=== PATIENT | female | born 1995 | race Hispanic/Latino ===

== ENCOUNTER 2021-08-15 21:02 | Emergency (ER) | payer OTHER, SELFPAY ==
[2021-08-15 21:15] VITALS: BP 129/74; PULSE 88; RESP 16; TEMP 36.4; O2SAT 100
--- NOTE | 2021-08-15 22:35 | ED.SKABFB ---
HPI - Skin/Abscess/Foreign Bdy General Chief complaint: Skin/Abscess/Foreign Body Stated complaint: foreign body stuck in lip piercing Time Seen by Provider: 08/15/21 22:06 Source: patient and family Mode of arrival: ambulatory History of Present Illness HPI narrative: 25-year-old otherwise healthy here with retained foreign body in her upper lip for last several weeks. Patient states that she was trying to get it out but was unsuccessful. She is worried it could get infected. Onset (ago): week(s) (Several week) Location: face (Upper lip) Context: none Associated symptoms: denies other symptoms Related Data Allergies Allergy/AdvReac Type Severity Reaction Status Date / Time No Known Allergies Allergy Verified 08/15/21 21:20 Review of Systems Review of Systems: All systems reviewed & are unremarkable except as noted in HPI and below Constitutional: Constitutional: Reports no additional constitutional complaints Eyes: Eyes: Reports no additional eye complaints ENT: Reports as per HPI Cardiovascular: Cardiovascular: Reports no additional cardiovascular complaints Respiratory: Respiratory: Reports no additional respiratory complaints Gastrointestinal: Gastrointestinal: Reports no additional gastrointestinal complaints Genitourinary: Genitourinary: Reports no additional female genitourinary complaints Musculoskeletal: Musculoskeletal: Reports no additional musculoskeletal complaints Exam Narrative: GENERAL: Well-appearing, well-nourished, and in no acute distress. HEAD: Normocephalic, atraumatic. EYES: PERRLA and EOMI. ENT: Nares clear, no rhinorrhea or epistaxis. Mucous membranes moist. FB is palpable in the upper lip NECK: Supple. CHEST: Clear to auscultation. No respiratory distress. HEART: Regular rate and rhythm. No murmur heard. Normal peripheral pulses. EXTREMITIES: Normal range of motion. No edema. SKIN: Warm, dry, no rash. NEURO: No focal deficits. Alert and oriented x3. PSYCH: Normal mood and affect. Course Vital Signs Vital signs: Vital Signs Temperature 36.4 C 08/15/21 21:15 Pulse Rate 88 08/15/21 21:15 Respiratory Rate 16 08/15/21 21:15 Blood Pressure 129/74 08/15/21 21:15 Pulse Oximetry 100 08/15/21 21:15 Temperature 36.4 C 08/15/21 21:15 Pulse Rate 88 08/15/21 21:15 Respiratory Rate 16 08/15/21 21:15 Blood Pressure 129/74 08/15/21 21:15 Pulse Oximetry 100 08/15/21 21:15 Procedures Foreign Body Removal Foreign Body #1: Foreign Body Removal Date: 08/15/21 Foreign Body Removal Time: 22:43 Time Out Performed: yes Site: face (upper lip) Description of foreign body: bead Sedation/Analgesia: other (1% lidocaine give about 3 ml) Technique: incision made to facilitate removal Complications: none Post-procedure exam: awake, alert Discharge Plan Discharge Clinical Impression: Foreign body (FB) in soft tissue Patient Disposition: Home, Self-Care Condition: Stable Instructions: Antibiotic Form, Puncture Wound (DC) Additional Instructions: keep it clean , take antibiotic as prescribed. Prescriptions: New amoxicillin 875 mg tablet 875 mg PO Q12H Qty: 14 RF: 0 Follow-up/Referrals: PHYSICIAN,BAND SAWYER [Primary Care Provider] - Karan Fernández MD [Physician] - Time of Disposition: 22:40
== END 2021-08-15 22:49 | disposition home or self-care (01) ==
PROVIDERS: Emergency Provider Family Medicine
DX: S00.551A Superficial foreign body of lip, initial encounter (principal); Y29.XXXA Contact with blunt object, undetermined intent, initial encounter
CPT/HCPCS: 10120; 99283

== ENCOUNTER 2021-10-06 12:27 | Emergency (ER) | payer OTHER, SELFPAY ==
[2021-10-06 12:33] VITALS: BP 125/79; PULSE 99; RESP 18; TEMP 36.9; O2SAT 100
--- NOTE | 2021-10-06 12:43 | PC.NURSE ---
called patient for bed placement, not in waiting room or in immediate ER parking lot.
[2021-10-06] MEDS: LORazepam (*CRX) 1 MG TABLET PO (13:04)
[2021-10-06 13:26] LABS: Basophils Percent Auto 0.4 % (0.2-1.2); Eosinophils Percent Auto 0.4 % (0-4.4); Hematocrit 37.6 % (37.0-47.0); Immature Granulocyte Absolute 0.02 K/mm3 (0.00-0.031); Immature Granulocyte Percent A 0.4 % (0-0.5); Lymphocytes Absolute Auto 1.46 K/mm3 (0.9-3.2); Lymphocytes Percent Auto 26.5 % (18.3-44.2); Mean Corpuscular HGB Conc 34.6 g/dl (32-36); Mean Corpuscular Hemoglobin 29.9 pg (26-34); Mean Corpuscular Volume 86.4 fl (80-100); Mean Platelet Volume 9.9 fl (7.4-10.4); Monocytes Absolute Auto 0.4 K/mm3 (0.1-0.6); Monocytes Percent Auto 7.6 % (2.6-8.5); Neutrophils Absolute Auto 3.6 K/mm3 (1.3-6.7); Neutrophils Percent Auto 64.7 % (45.5-73.1); Platelet Count Result 332 k/mm3 (150-375); Red Blood Count 4.35 M/mm3 (4.2-5.4); Red Cell Distribution Width 13.3 % (11.5-14.5); White Blood Count 5.5 K/mm3 (4.5-10.0)
[2021-10-06 13:36] LABS: Ethanol < 10 mg/dL (<10)
[2021-10-06 13:37] LABS: Add Urine Microscopic? NO; Appearance Urine Clear (Clear); Bilirubin Urine Negative (Negative); Blood Urine Negative (Negative); Color Urine Colorless (Yellow); Glucose Urine UA Negative (Negative); Ketones Urine Negative (Negative); Leukocyte Esterase Ur Negative LEU/UL (Negative); Nitrate Urine Negative (Negative); Protein Urine Negative (Negative); Urobilinogen Urine Negative mg/dL (<2.0)
[2021-10-06 13:39] LABS: Alanine Aminotransferase 15 U/L (4-35); Albumin Level 4.7 g/dL (3.5-5.1); Alkaline Phosphatase 55 U/L (38-126); Anion Gap 9 mmol/L (8-16); Aspartate Amino Transferase 24 U/L (14-36); Bilirubin,Total 0.4 mg/dL (0.2-1.3); Blood Urea Nitrogen 11 mg/dL (7-17); Calcium 9.4 mg/dL (8.4-10.2); Carbon Dioxide 23 mmol/L (22-30); Chloride 110 mmol/L (98-107); Estimated CRCL calculation 103 ml/min; Estimated Glomerular Filt Rate > 60; Glucose 111 mg/dL (65-110); Potassium 3.7 mmol/L (3.4-5.0); Sodium 142 mmol/L (137-145)
[2021-10-06 13:41] LABS: Specific Grav Ur 1.002 (1.001-1.035)
--- NOTE | 2021-10-06 14:45 | PC.NURSE ---
Pt's out to desk, requesting to find out how much longer till she can go. Pt states is feeling better. Dr. Woods aware, states pt is medically cleared at this time but that he is concerned because per his conversation with the patient she was suicidal, and wishes crisis to come out and clear the patient. Pt and s.o. updated; pt's becomes angry, states that's not what she said! . Explained that I was going by what the physician said as I nor he was privy to the conversation. States Well we're not waiting around all day . Call to crisis @ [phone]. No answer. Message left to return call to Abimael.
--- NOTE | 2021-10-06 14:50 | ED.GENADULT ---
HPI - General Adult General Chief complaint: Anxiety Stated complaint: panic attacks Time Seen by Provider: 10/06/21 12:52 History of Present Illness HPI narrative: Patient is a 25-year-old female who presents the ER with anxiety. 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 Patient was seen by a doctor in [place] in the last week and prescribed hydroxyzine for episodic anxiety and then placed on Lexapro. Patient lives here and has no resources. She has no chest pain or shortness of breath or nausea or vomiting. She is just feeling overly anxious. She feels as if she potentially harm herself if her anxiety does not go away. She has no suicidal intent or plan. No previous attempts. No previous hospitalization for mental health. Related Data Allergies Allergy/AdvReac Type Severity Reaction Status Date / Time No Known Allergies Allergy Verified 08/15/21 21:20 Review of Systems Review of Systems: All systems reviewed & are unremarkable except as noted in HPI and below Constitutional: Constitutional: Denies chills, Denies fever(s) and Denies weakness ENT: Denies nasal congestion and Denies sore throat Gastrointestinal: Gastrointestinal: Denies abdominal pain, Denies nausea and Denies vomiting Psychiatric: Psychiatric: Reports anxiety, Denies depression, Denies homicidal ideation and Reports suicidal ideation PMFSH Past Medical History Medical History (Updated 10/06/21 @ 17:42 by Hawk Woods MD) Anxiety Surgical History Surgical History (Updated 10/06/21 @ 17:42 by Hawk Woods MD) No pertinent past surgical history Social History Social History (Updated 10/06/21 @ 17:42 by Hawk Woods MD) Substance use type: does not use, former substance user and methamphetamine Exam Narrative: GENERAL: Well-appearing, well-nourished, and in no acute distress. HEAD: Normocephalic, atraumatic. ENT: Mucous membranes moist. NECK: Supple. CHEST: Clear to auscultation. No respiratory distress. HEART: Regular rate and rhythm. Normal peripheral pulses. ABDOMEN: Soft, nontender, nondistended. EXTREMITIES: Normal range of motion. No edema. SKIN: Warm, dry, no rash. NEURO: Alert and oriented x3. PSYCH: Anxious with passive thoughts of suicidality without plan. No HI. Not responding to internal stimuli. Course Course Emergency Course: Patient has been evaluated by crisis. Contracted for safety. Given phone numbers for acute episodes of crisis. Vital Signs Vital signs: Vital Signs Temperature 98.4 F 10/06/21 12:33 Pulse Rate 99 10/06/21 12:33 Respiratory Rate 18 10/06/21 12:33 Blood Pressure 125/79 10/06/21 12:33 Pulse Oximetry 100 10/06/21 12:33 Temperature 98.4 F 10/06/21 12:33 Pulse Rate 99 10/06/21 12:33 Respiratory Rate 18 10/06/21 12:33 Blood Pressure 125/79 10/06/21 12:33 Pulse Oximetry 100 10/06/21 12:33 Medical Decision Making Vital Signs Vital Signs: Vital Signs Temperature 98.4 F 10/06/21 12:33 Pulse Rate 99 10/06/21 12:33 Respiratory Rate 18 10/06/21 12:33 Blood Pressure 125/79 10/06/21 12:33 Pulse Oximetry 100 10/06/21 12:33 Temperature 98.4 F 10/06/21 12:33 Pulse Rate 99 10/06/21 12:33 Respiratory Rate 18 10/06/21 12:33 Blood Pressure 125/79 10/06/21 12:33 Pulse Oximetry 100 10/06/21 12:33 Lab Data Result diagrams: 10/06/21 13:19 10/06/21 13:19 Labs: Lab Results 10/06/21 10/06/21 10/06/21 Range/Units 13:19 13:19 13:19 WBC 5.5 (4.5-10.0) K/mm3 RBC 4.35 (4.2-5.4) M/mm3 Hgb 13.0 (12.0-15.0) g/dL Hct 37.6 (37.0-47.0) % MCV 86.4 (80-100) fl MCH 29.9 (26-34) pg MCHC 34.6 (32-36) g/dl RDW 13.3 (11.5-14.5) % Plt Count 332 (150-375) k/mm3 MPV 9.9 (7.4-10.4) fl Immature Gran % (Auto) 0.4 (0-0.5) % Neut % (Au
--- NOTE | 2021-10-06 14:56 | PC.NURSE ---
Pt requesting to go outside and smoke a cigarette. Charge made aware. Pt updated on awaiting crisis intervention; pt states if I thought she was suicidal I wouldn't have brought her here, [facility]'t even have psych. I would've taken to her K[facility] . Explained to pt and spouse that speaking to crisis would be beneficial as pt would be getting referrals for an MD in the area. Pt and agree.
[2021-10-06 15:08] LABS: Amphetamine Screen Urine Negative (Negative); Barbiturate Screen Urine Negative (Negative); Benzodiazepines Screen Urine Negative (Negative); Cannabinoid Screen Urine Positive (Negative); Cocaine Screen Urine Negative (Negative); Methadone Screen Urine Negative (Negative); Opiate Screen Urine Negative (Negative); Phencyclidine Screen Urine Negative (Negative)
--- NOTE | 2021-10-06 15:14 | PC.NURSE ---
Krissy from [place] returns call and given history and assessment. [facility] will send an encyclopedia research worker to come and speak with the patient, eta 45 min to 1 hr. Pt and updated.
--- NOTE | 2021-10-06 16:07 | PC.NURSE ---
Straight Cutter Machine from [place] here and at bedside speaking with patient.
--- NOTE | 2021-10-06 16:42 | PC.NURSE ---
Morales from [place] here to speak with patient.
== END 2021-10-06 17:40 | disposition home or self-care (01) ==
PROVIDERS: Emergency Provider Emergency Medicine
DX: F41.9 Anxiety disorder, unspecified (principal)
CPT/HCPCS: 36415; 80053; 80307; 81003; 84443; 85025; 99284; A9270

== ENCOUNTER 2022-01-31 09:32 | Emergency (ER) | payer OTHER, SELFPAY ==
[2022-01-31 09:38] VITALS: BP 111/71; PULSE 92; RESP 18; TEMP 36.3; O2SAT 99
--- NOTE | 2022-01-31 09:45 | ED.URI ---
HPI - URI/Sore Throat General Chief Complaint: Upper Respiratory Infection Stated Complaint: body aches/vomiting Time Seen by Provider: 01/31/22 09:39 History of Present Illness HPI Narrative: 26-year-old female presents the emergency room with sudden onset of subjective fever, body aches, headache, nonproductive cough, and nausea/vomiting. Patient states that symptoms started yesterday. Has not taken any medications to manage her symptoms. Patient states that she took a at home COVID test this morning and tested positive. Denies abdominal pain Related Data Allergies Allergy/AdvReac Type Severity Reaction Status Date / Time No Known Allergies Allergy Verified 01/31/22 09:55 Review of Systems Review of Systems: CONSTITUTIONAL: Reports fever, chills, or sweats. EYES: Denies visual changes, redness, or discharge. ENT: Denies rhinorrhea, congestion, sore throat, or otalgia. CARDIOVASCULAR: Denies chest pain, palpitations, or edema. RESPIRATORY: Reports cough GASTROINTESTINAL: Denies abdominal pain, reports nausea, vomiting, and diarrhea. GENITOURINARY: Denies dysuria or hematuria. SKIN: Denies rash or itching. MUSCULOSKELETAL: Reports body aches NEUROLOGIC: Denies headache, numbness, dizziness, or weakness. PSYCHIATRIC: Denies anxiety or depression. [facility] Past Medical History Medical History Anxiety Surgical History Surgical History No pertinent past surgical history Social History Social History Substance use type: does not use, former substance user and methamphetamine Exam Narrative: GENERAL: Well-appearing, well-nourished, no physical limitations, and in no acute distress. HEAD: Normocephalic, atraumatic. EYES: Conjunctivae normal, PERRLA and EOMI. ENT: External nose normal, Nares clear, no rhinorrhea or epistaxis. Mucous membranes moist. Oropharynx without tonsillar hypertrophy exudate or other lesions. External ears normal, bilateral TMs normal bilaterally NECK: Supple. No adenopathy or masses. CHEST: Clear to auscultation. No respiratory distress. No wheezes rales or rhonchi. No tenderness. HEART: Regular rate and rhythm. No murmur heard. Normal peripheral pulses. ABDOMEN: Soft, nontender, nondistended, normal active bowel sounds. EXTREMITIES: Normal range of motion. No edema. No clubbing or cyanosis SKIN: Warm, dry, no rash. No noted wounds NEURO: No focal deficits. Alert and oriented x3. MAEW. CN's II-XI intact bilaterally, normal gait PSYCH: Cooperative. Normal mood and affect. Course Vital Signs Vital signs: Vital Signs Temperature 36.3 C L 01/31/22 09:38 Pulse Rate 92 01/31/22 09:38 Respiratory Rate 18 01/31/22 09:38 Blood Pressure 111/71 01/31/22 09:38 Pulse Oximetry 99 01/31/22 09:38 Oxygen Delivery Room Air 01/31/22 09:38 Temperature 36.3 C L 01/31/22 09:38 Pulse Rate 92 01/31/22 09:38 Respiratory Rate 18 01/31/22 09:38 Blood Pressure 111/71 01/31/22 09:38 Pulse Oximetry 99 01/31/22 09:38 Oxygen Delivery Room Air 01/31/22 09:38 MDM - URI/Sore Throat Lab Data Labs: Lab Results 01/31/22 Range/Units 09:54 SARS-CoV-2 RNA (RT-PCR) Positive A Discharge Plan Discharge Clinical Impression: COVID, Gastroenteritis Patient Disposition: Home, Self-Care Condition: Stable Instructions: Antibiotic Form, Viral Syndrome (ED) Additional Instructions: Take Tylenol and ibuprofen as needed for body aches and fever. Recommend isolating per CDC guidelines. Prescriptions: New ondansetron 4 mg tablet,disintegrating 4 mg PO Q8H Qty: 14 0RF No Action amoxicillin 875 mg tablet 875 mg PO Q12H Qty: 14 0RF Follow-up/Referrals: PHYSICIAN,SHUCKER [Primary Care Provider] - Stand Alone Forms: Work/School Release IP Time of Disposition: 10:44
[2022-01-31] MEDS: ONDANSETRON INJ 4 MG/2 ML VIAL IV PUSH (09:56)
[2022-01-31] MEDS: SODIUM CHLORIDE 0.9% IV 1,000 ML 999 ML IV CONT (09:56)
[2022-01-31 10:37] LABS: SARS-CoV-2 RNA PCR Positive
== END 2022-01-31 11:02 | disposition home or self-care (01) ==
PROVIDERS: Emergency Provider Nurse Practitioner Family
DX: U07.1 COVID-19 (principal); K52.9 Noninfective gastroenteritis and colitis, unspecified
CPT/HCPCS: 96361; 96374; 99284; C9803; J2405; J7030; U0003; U0005